=== PATIENT | male | born 1985 | race Two or more races ===

== ENCOUNTER 2022-05-17 16:05 | Emergency (ER) | payer SELFPAY ==
[~2022-05-17] VITALS: Ht 175.3 cm; Wt 95.0 kg
[2022-05-17] MEDS ORDERED: KETOROLAC 60MG/2ML VIAL IM ONE (21:00)
[2022-05-17] MEDS ORDERED: ACETAMINOPHEN 325MG TABLET PO ONE (21:00)
[2022-05-17 21:03] VITALS: BP 132/86
[2022-05-17] MEDS ORDERED: ACET-2708 MT (23:28)
[2022-05-17] MEDS ORDERED: IBUP-2030 MT (23:28)
== END 2022-05-17 23:40 | disposition home or self-care (01) ==
LOC: ER 17:07
DX: M54.2 Cervicalgia (principal); M54.50 Low back pain, unspecified
CPT/HCPCS: 71045; 72040; 72100; 96372; 99284; J1885; Z7610